=== PATIENT | female | born 1985 | race African-American/Black ===

== ENCOUNTER 2017-01-29 07:12 | Emergency (ER) | payer MEDICAID ==
[2017-01-29 10:01] LABS: ABSOLUTE BASOPHILS # (AUTO) 0.1 10^3/uL (0.0-0.2); ABSOLUTE EOSINOPHILS # (AUTO) 0.1 10^3/uL (0.0-0.6); ABSOLUTE LYMPHOCYTES (AUTO) 4.8 10^3/uL (0.5-4.7); ABSOLUTE MONOCYTES (AUTO) 0.8 10^3/uL (0.1-1.4); ABSOLUTE NEUT (AUTO) 6.7 10^3/uL (1.7-8.2); BASOPHILS % (AUTO) 0.5 % (0-2); EOSINOPHILS % (AUTO) 0.8 % (0-6); HEMATOCRIT 38.2 % (36.0-47.0); HEMOGLOBIN 12.8 g/dL (12.0-15.5); HGB HCT DIFFERENCE 0.2; LYMPHOCYTES % (AUTO) 38.5 % (13-45); MEAN CORPUSCULAR HEMOGLOBIN 31.1 pg (27.0-33.4); MEAN CORPUSCULAR HGB CONC 33.4 g/dL (32.0-36.0); MEAN CORPUSCULAR VOLUME 93 fl (80-97); MONOCYTES % (AUTO) 6.4 % (3-13); RED CELL DISTRIBUTION WIDTH 12.7 % (11.5-14.0); SEGMENTED NEUTROPHILS % (AUTO) 53.8 % (42-78); WHITE BLOOD COUNT 12.5 10^3/uL (4.0-10.5)
[2017-01-29 10:24] LABS: ALANINE AMINOTRANSFERASE 29 U/L (9-52); ALBUMIN 3.9 g/dL (3.5-5.0); ALKALINE PHOSPHATASE 86 U/L (38-126); ANION GAP 13 (5-19); ASPARTATE AMINO TRANSFERASE 12 U/L (14-36); BILIRUBIN,DIRECT 0.3 mg/dL (0.0-0.4); BILIRUBIN,TOTAL 0.5 mg/dL (0.2-1.3); BLOOD UREA NITROGEN 11 mg/dL (7-20); CALCIUM 9.2 mg/dL (8.4-10.2); CARBON DIOXIDE 24 mmol/L (22-30); CHLORIDE 106 mmol/L (98-107); CREATININE RESULT 0.75 mg/dL (0.52-1.25); GLUCOSE 115 mg/dL (75-110); LIPASE 63.6 U/L (23-300); POTASSIUM 3.9 mmol/L (3.6-5.0); SODIUM 142.5 mmol/L (137-145); TOTAL PROTEIN 6.8 g/dL (6.3-8.2)
--- NOTE | 2017-01-29 10:57 | ER Document Report ---
ED General - General Chief Complaint: Abdominal Pain Stated Complaint: ABDOMINAL PAIN Time Seen by Provider: 01/29/17 08:17 TRAVEL OUTSIDE OF THE [place] IN LAST 30 DAYS: No - HPI Patient complains to provider of: Abdominal pain Notes: Patient coming in for evaluation of abdominal pain. Patient states recently seen the local [place] [facility] with a test showing she had H. pylori in her stomach. Patient states she was placed on antibiotics for 2 weeks however continues to have pain. Patient denies any fever chills nausea vomiting diarrhea. Patient also states she is currently on oxycodone for her back pain. Patient states she has not seen a GI specialist nor has she ever had an EGD performed. Patient states she is currently on omeprazole. - Related Data Allergies/Adverse Reactions: No Known Allergies Allergy (Verified 01/29/17 07:32) Past Medical History - Social History Smoking Status: Never Smoker Frequency of alcohol use: None Drug Abuse: None Family History: Reviewed & Not Pertinent Patient has suicidal ideation: No Patient has homicidal ideation: No Neurological Medical History: Denies: Hx Seizures Renal/ Medical History: Denies: Hx Peritoneal Dialysis Musculoskeltal Medical History: Reports Hx Musculoskeletal Deformity Past Surgical History: Reports: Hx Cholecystectomy - Immunizations Immunizations up to date: Yes Hx Diphtheria, Pertussis, Tetanus Vaccination: Yes Review of Systems - Review of Systems Constitutional: No symptoms reported EENT: No symptoms reported Cardiovascular: No symptoms reported Respiratory: No symptoms reported Gastrointestinal: Abdominal pain Genitourinary: No symptoms reported Female Genitourinary: No symptoms reported Musculoskeletal: No symptoms reported Skin: No symptoms reported Hematologic/Lymphatic: No symptoms reported Neurological/Psychological: No symptoms reported -: Yes All other systems reviewed and negative Physical Exam - Vital signs Vitals: Temp Pulse Resp BP Pulse Ox 98.2 F 80 16 136/88 H 100 01/29/17 07:32 01/29/17 07:32 01/29/17 07:32 01/29/17 07:32 01/29/17 07:32 Interpretation: Normal - General General appearance: Appears well, Alert - HEENT Head: Normocephalic, Atraumatic Eyes: Normal Pupils: PERRL - Respiratory Respiratory status: No respiratory distress Chest status: Nontender Breath sounds: Normal Chest palpation: Normal - Cardiovascular Rhythm: Regular Heart sounds: Normal auscultation Murmur: No - Abdominal Inspection: Normal Distension: No distension Bowel sounds: Normal Tenderness: Nontender Organomegaly: No organomegaly - Back Back: Normal, Nontender - Extremities General upper extremity: Normal inspection, Nontender, Normal color, Normal ROM , Normal temperature General lower extremity: Normal inspection, Nontender, Normal color, Normal ROM , Normal temperature, Normal weight bearing. No: Obed's sign - Neurological Neuro grossly intact: Yes Cognition: Normal Orientation: AAOx4 Ritu Coma Scale Eye Opening: Spontaneous [place] Coma Scale Verbal: Oriented Ritu Coma Scale Motor: Obeys Commands [place] Coma Scale Total: 15 Speech: Normal Motor strength normal: LUE, RUE, LLE, RLE Sensory: Normal - Psychological Associated symptoms: Normal affect, Normal mood - Skin Skin Temperature: Warm Skin Moisture: Dry Skin Color: Normal Course - Re-evaluation Re-evalutation: 01/29/17 14:16 MRI does not show any significant pathology. I did explain to the patient that she will need to follow-up more likely with a GI specialist or PCP for further testing to make sure her H. pylori was treated. Patient was given Carafate and encouraged to continue her medications as prescribed for 01/29/17 14:17 : The patient presents with abdominal pain without signs of peritonitis or other life-threatening or serious etiology. The patient appears stable for discharge and has been instructed to return immediately if the symptoms worsen in any way, or in 8-12hr if not improved for re-evaluation. The patient has been instructed to return if the symptoms worsen or change in any way.. - Vital Signs Vital signs: Temp Pulse Resp BP Pulse Ox 97.4 F 70 16 145/81 H 99 01/29/17 11:13 01/29/17 11:13 01/29/17 11:13 01/29/17 11:13 01/29/17 11:13 - Laboratory Result Diagrams: 01/29/17 09:44 01/29/17 09:44 Laboratory results interpreted by me: 01/29/17 01/29/17 09:44 09:44 WBC 12.5 H Absolute Lymphocytes 4.8 H Glucose 115 H AST 12 L Discharge - Discharge Clinical Impression: Abdominal pain Qualifiers: Abdominal location: unspecified location Qualified Code(s): R10.9 - Unspecified abdominal pain Condition: Good Disposition: HOME, SELF-CARE Instructions: Abdominal Pain ([facility]), Gastritis ([facility]) Additional Instructions: Laboratory studies today reveal no critical etiology. I would highly recommend she follow-up with the construction trench digger provided. May try the medication also provided to aid with your pain. Prescriptions: Sucralfate [Carafate 1 gm Tablet] 1 gm PO ACHS #120 tablet Referrals: BRIAN HWANG MD [Primary Care Provider] - Follow up as needed TL WILKES MD [ACTIVE STAFF] - Follow up as needed
[2017-01-29 11:15] VITALS: BP 145/81
== END 2017-01-29 11:13 | disposition home or self-care (01) ==
LOC: ER 07:12
DX: R10.9 Unspecified abdominal pain (principal); M54.9 Dorsalgia, unspecified; Z79.899 Other long term (current) drug therapy; Z86.19 Personal history of other infectious and parasitic diseases; Z90.49 Acquired absence of other specified parts of digestive tract
CPT/HCPCS: 36415; 80053; 83690; 85025; 99284

== ENCOUNTER 2018-01-06 02:45 | Emergency (ER) | payer MEDICAID ==
[2018-01-06 03:52] LABS: APPEARANCE,URINE SLIGHTLY-CLOUDY; BILIRUBIN,URINE NEGATIVE (NEGATIVE); COLOR,URINE YELLOW; GLUCOSE, URINE >=500 mg/dL (NEGATIVE); KETONES,URINE NEGATIVE (NEGATIVE); LEUKOCYTE ESTERASE,URINE MODERATE (NEGATIVE); NITRITE,URINE NEGATIVE (NEGATIVE); PROTEIN,URINE NEGATIVE (NEGATIVE); URINE SPECIFIC GRAVITY 1.024
--- NOTE | 2018-01-06 03:53 | ER Document Report ---
ED General - General Chief Complaint: Abdominal Pain Stated Complaint: ABDOMINAL PAIN/BACK PAIN Time Seen by Provider: 01/06/18 03:39 Notes: Patient is a 32-year-old female presents with complaint of pain in the left side of her lower back. She does have a history of back surgery. This was about a month ago. She had a laminectomy performed. No weakness or numbness into the legs. No loss of bowel control. She has no some urinary frequency. Pain does radiate around the left flank and left lower pelvis. She also mentions that she slept with her ex approximately 2 weeks ago. She notes some discharge last week but has not had any since then. No abnormal vaginal bleeding. No history of kidney stones. Movement does seem to make the pain worse. No other complaints at this time. No vomiting. TRAVEL OUTSIDE OF THE [place] IN LAST 30 DAYS: No - Related Data Allergies/Adverse Reactions: No Known Allergies Allergy (Verified 01/06/18 02:54) Past Medical History - Social History Smoking Status: Unknown if Ever Smoked Frequency of alcohol use: None Drug Abuse: None Family History: Reviewed & Not Pertinent Neurological Medical History: Denies: Hx Seizures Renal/ Medical History: Denies: Hx Peritoneal Dialysis Musculoskeltal Medical History: Reports Hx Musculoskeletal Deformity Past Surgical History: Reports: Hx Cholecystectomy - Immunizations Immunizations up to date: Yes Hx Diphtheria, Pertussis, Tetanus Vaccination: Yes Review of Systems - Review of Systems Notes: My Normal Review Basic REVIEW OF SYSTEMS: CONSTITUTIONAL : Denies fever, chills, or sweats. Denies recent illness. CARDIOVASCULAR: Denies chest pain. RESPIRATORY: Denies cough, cold, or chest congestion. Denies shortness of breath, difficulty breathing, or wheezing. GASTROINTESTINAL: Left flank and abdomen abdominal pain. Denies nausea, vomiting, or diarrhea. Denies constipation. Last BM: GENITOURINARY: Denies difficulty urinating, painful urination, burning, frequency, or blood in urine. FEMALE GENITOURINARY: Some vaginal discharge which since resolved. MUSCULOSKELETAL: Low back pain SKIN: Denies rash or skin lesions. NEUROLOGICAL: Denies altered mental status or loss of consciousness. Denies headache. Denies weakness or paralysis or loss of use of either side. Denies problems with gait or speech. Denies sensory or motor loss. ALL OTHER SYSTEMS REVIEWED AND NEGATIVE. Physical Exam - Vital signs Vitals: Temp Pulse Resp BP Pulse Ox 98.9 F 83 18 121/85 99 01/06/18 02:57 01/06/18 02:57 01/06/18 02:57 01/06/18 02:57 01/06/18 02:57 - Notes Notes: General Appearance: Well nourished, alert, cooperative, no acute distress, mild obvious discomfort. Vitals: reviewed, See vital signs table. Head: no swelling or tenderness to the head Eyes: PERRL, EOMI, Conjuctiva clear Mouth: No decreasd moisture Throat: No tonsillar inflammation, No airway obstruction, No lymphadenopathy Neck: Supple, no neck tenderness, No thyromegaly Lungs: No wheezing, No rales, No rhonci, No accessory muscle use, good air exchange bilaterally. Heart: Normal rate, Regular rythm, No murmur, no rub Abdomen: Normal BS, soft, No rigidity, very minimal left lower quadrant left flank abdominal tenderness to palpation, No guarding, no rebound, no abdominal masses, no organomegaly Back: Pain to palpation over left lumbar paraspinal musculature. Some midline lumbar tenderness. No right-sided tenderness. Extremities: strength 5/5 in all extremities, good pulses in all extremities, no swelling or tenderness in the extremities, no edema. Skin: warm, dry, appropriate color, no rash Neuro: speech clear, oriented x 3, normal affect, responds appropriately to questions. Good strength with plantar and dorsiflexion against resistance. Normal distal sensation. Course - Vital Signs Vital signs: Temp Pulse Resp BP Pulse Ox 98.9 F 83 18 121/85 99 01/06/18 02:57 01/06/18 02:57 01/06/18 02:57 01/06/18 02:57 01/06/18 02:57 Discharge - Discharge Referrals: BRIAN HWANG MD [Primary Care Provider] - Follow up as needed
[2018-01-06 04:29] LABS: BACTERIA (WET MOUNT) 4+ BACTERIA SEEN; EPITHELIALS (WET MOUNT) 4+ EPITHELIALS SEEN; RBCS (WET MOUNT) NO RBCS SEEN; T.VAGINALIS (WET MOUNT) NO TRICHOMONAS SEEN; WBCS (WET MOUNT) FEW WBCS SEEN; YEAST (WET MOUNT) NO YEAST SEEN
[2018-01-06] MEDS ORDERED: METRONIDAZOLE 500 MG TABLET PO ONE (05:15)
--- NOTE | 2018-01-06 05:21 | ER Document Report ---
ED General - General Chief Complaint: Abdominal Pain Stated Complaint: ABDOMINAL PAIN/BACK PAIN Time Seen by Provider: 01/06/18 03:39 Notes: Patient is a 32-year-old female who presents with complaint of back pain is been in the left side and radiates around the left flank. Most pain is in the back. Worse with movement. She denies any dysuria but has had a little bit of urinary frequency. No vomiting. No diarrhea. No loss of bowel control. No leg weakness or numbness. She does have history of back surgery which she had 1 month ago. She had a laminectomy performed. She denies history of diabetes. Denies history of high blood pressure. She does admit that she slept with her ex approximately a week ago. She had little bit of whitish vaginal discharge. No abnormal vaginal bleeding. No other complaints at this time. - Related Data Allergies/Adverse Reactions: No Known Allergies Allergy (Verified 01/06/18 02:54) Past Medical History - Social History Smoking Status: Unknown if Ever Smoked Frequency of alcohol use: None Drug Abuse: None Family History: Reviewed & Not Pertinent Patient has suicidal ideation: No Patient has homicidal ideation: No Neurological Medical History: Denies: Hx Seizures Renal/ Medical History: Denies: Hx Peritoneal Dialysis Musculoskeltal Medical History: Reports Hx Musculoskeletal Deformity Past Surgical History: Reports: Hx Cholecystectomy - Immunizations Immunizations up to date: Yes Hx Diphtheria, Pertussis, Tetanus Vaccination: Yes Review of Systems - Review of Systems Notes: My Normal Review Basic REVIEW OF SYSTEMS: CONSTITUTIONAL : Denies fever, chills, or sweats. Denies recent illness. EENT: Denies eye, ear, throat, or mouth pain or symptoms. Denies nasal or sinus congestion. CARDIOVASCULAR: Denies chest pain. RESPIRATORY: Denies cough, cold, or chest congestion. Denies shortness of breath, difficulty breathing, or wheezing. GASTROINTESTINAL: Left flank pain, denies nausea, vomiting, or diarrhea. Denies constipation. Last BM: GENITOURINARY: Denies difficulty urinating, painful urination, burning, frequency, or blood in urine. FEMALE GENITOURINARY: Mild vaginal discharge MUSCULOSKELETAL: Back Pain SKIN: Denies rash or skin lesions. NEUROLOGICAL: Denies altered mental status or loss of consciousness. Denies headache. Denies weakness or paralysis or loss of use of either side. Denies problems with gait or speech. Denies sensory or motor loss. ALL OTHER SYSTEMS REVIEWED AND NEGATIVE. Physical Exam - Vital signs Vitals: Temp Pulse Resp BP Pulse Ox 98.9 F 83 18 121/85 99 01/06/18 02:57 01/06/18 02:57 01/06/18 02:57 01/06/18 02:57 01/06/18 02:57 - Notes Notes: General Appearance: Well nourished, alert, cooperative, no acute distress, mild obvious discomfort. Vitals: reviewed, See vital signs table. Head: no swelling or tenderness to the head Eyes: PERRL, EOMI, Conjuctiva clear Mouth: No decreasd moisture Lungs: No wheezing, No rales, No rhonci, No accessory muscle use, good air exchange bilaterally. Heart: Normal rate, Regular rythm, No murmur, no rub Abdomen: Normal BS, soft, No rigidity, very mild left-sided flank abdominal tenderness. Remainder of abdomen is nontender., No guarding, no rebound, no abdominal masses, no organomegaly Exam: Pelvic exam performed with Ivelisse Monk RN as restrictive preparation operator. No abnormal vaginal bleeding on exam. Patient has just very small amount of whitish discharge. Back: Patient has significant tenderness palpation over the left lumbar paraspinal musculature. Very mild midline tenderness to palpation. No right- sided tenderness. Extremities: strength 5/5 in all extremities, good pulses in all extremities, no swelling or tenderness in the extremities, no edema. Skin: warm, dry, appropriate color, no rash Neuro: speech clear, oriented x 3, normal affect, responds appropriately to questions. Good strength against resistance with plantar dorsiflexion. Normal gait. Distal sensation intact. Course - Re-evaluation Re-evalutation: 01/06/18 05:42 I suspect most patient's pain is muscular skeletal in relation to her back. Is easily reproducible palpation. Urine does show some sugar in the urine. Therefore obtain Accu-Chek was 190. I talked to patient length about prediabetes. She does a primary care doctor who she has not seen in a few months. I encouraged her to follow-up with primary care doctor this week for further testing or diabetes. I talked about diet changes that most times early diabetes can be managed with diet changes and weight loss. She does have 4+ bacteria on her wet prep. I will treated for bacterial vaginosis. GC and chlamydia are pending. I did give her the number to call for culture call back. I told her if it is positive we should call her however she does not hear anything and she should feel free to call the culture callback number. Patient encouraged to return to her meal if she has severe back pain, leg numbness or leg weakness, vomiting, severe abdominal pain, loss of bowel control , urinary tension, or she feels unwell. Patient agrees with plan will be discharged home. Dictation of this chart was performed using voice recognition software; therefore, there may be some unintended grammatical errors. - Vital Signs Vital signs: Temp Pulse Resp BP Pulse Ox 98.9 F 83 18 121/85 99 01/06/18 02:57 01/06/18 02:57 01/06/18 02:57 01/06/18 02:57 01/06/18 02:57 - Laboratory Laboratory results interpreted by me: 01/06/18 01/06/18 03:33 04:43 POC Glucose 190 H Urine Glucose (UA) >=500 H Urine Urobilinogen 4.0 H Ur Leukocyte Esterase MODERATE H Discharge - Discharge Clinical Impression: Bacterial vaginitis, Elevated blood sugar Back pain Qualifiers: Back pain location: low back pain Chronicity: chronic Back pain laterality: left Sciatica presence: without sciatica Qualified Code(s): M54.5 - Low back pain Disposition: HOME, SELF-CARE Additional Instructions: Please take the antibiotics as prescribed. You blood sugar is elevated today. This could be the early stags of diabetes. Please do not eat foods that are high in sugar. Please do not drink soda or drink fruit juice. Please follow up with your doctor this week for reevaluation and for recheck of your blood sugar. Please return to the ER immediately if you have fevers, increasing thirst , increasing urination, worsening back pain, leg weakness, loss of bowel control , vomiting, or feel unwell. We did send of swabs to check for gonorrhea and chlamydia. We should call you if these are positive. Feel free to call on Sunday if you have not received your results. Prescriptions: Metronidazole [Flagyl 500 mg Tablet] 500 mg PO BID #14 tablet Referrals: BRIAN HWANG MD [Primary Care Provider] - 01/07/18
[2018-01-06 05:48] LABS: CHLAM PCR NOT DETECTED (NOT DETECT); GON PCR NOT DETECTED (NOT DETECT)
[2018-01-06 06:22] VITALS: BP 127/89
== END 2018-01-06 06:10 | disposition home or self-care (01) ==
LOC: ER 02:45
DX: N76.0 Acute vaginitis (principal); B96.89 Other specified bacterial agents as the cause of diseases classified elsewhere; M54.5 Low back pain; R73.9 Hyperglycemia, unspecified; R10.9 Unspecified abdominal pain; Z98.890 Other specified postprocedural states; Z90.49 Acquired absence of other specified parts of digestive tract
CPT/HCPCS: 99284; 87210; 82962; 81025; 81001; 87491; 87591; J3490

== ENCOUNTER 2019-02-13 08:10 | Emergency (ER) | payer SELFPAY ==
[2019-02-13 08:17] VITALS: BP 139/95
[2019-02-13] MEDS ORDERED: IBUPROFEN 800 MG TABLET PO ONE (10:01)
[2019-02-13] MEDS ORDERED: LIDOCAINE 5% (700 MG) TRANSDERMAL ADH..PATCH TP ONE (10:01)
--- NOTE | 2019-02-13 10:07 | ER Document Report ---
HPI - HPI Patient complains to provider of: Left shoulder and back pain Time Seen by Provider: 02/13/19 09:44 Onset: Yesterday Onset/Duration: Gradual Quality of pain: Achy Pain Level: 4 Context: Patient complains of left shoulder and upper back pain that started yesterday. Patient states she had a similar episode 2 weeks ago they had gotten better and then returned yesterday. Patient states pain is worse with movement. Patient is right-hand dominant. Patient denies any injury. 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 Associated Symptoms: Other - Left shoulder upper back pain. denies: Fever, Headache Exacerbated by: Movement Relieved by: Remaining still Similar symptoms previously: Yes Recently seen / treated by doctor: No - ROS ROS below otherwise negative: Yes Systems Reviewed and Negative: Yes All other systems reviewed and negative - CONSTITUTIONAL Constitutional: DENIES: Fever, Chills - NEURO Neurology: DENIES: Headache, Weakness - RESPIRATORY Respiratory: DENIES: Trouble Breathing, Coughing - GASTROINTESTINAL Gastrointestinal: DENIES: Nausea - REPRODUCTIVE Reproductive: DENIES: : - MUSCULOSKELETAL Musculoskeletal: REPORTS: Extremity pain - left shouder, Back Pain - DERM Skin Color: Normal Skin Problems: None Past Medical History - General Information source: Patient - Social History Smoking Status: Never Smoker Chew tobacco use (# tins/day): No Frequency of alcohol use: None Drug Abuse: None 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 Family History: Reviewed & Not Pertinent Patient has suicidal ideation: No Patient has homicidal ideation: No Neurological Medical History: Denies: Hx Seizures Endocrine Medical History: Reports: Hx Diabetes Mellitus Type 2 Renal/ Medical History: Denies: Hx Peritoneal Dialysis Musculoskeletal Medical History: Reports Hx Musculoskeletal Deformity Past Surgical History: Reports: Hx Section, Hx Cholecystectomy - Immunizations Immunizations up to date: Yes Hx Diphtheria, Pertussis, Tetanus Vaccination: Yes Vertical Provider Document - CONSTITUTIONAL Agree With Documented VS: Yes Exam Limitations: No Limitations General Appearance: WD/WN, No Apparent Distress - INFECTION CONTROL TRAVEL OUTSIDE OF THE [place] IN LAST 30 DAYS: No - HEENT HEENT: Atraumatic, Normocephalic - NECK Neck: Normal Inspection, Supple Notes: No meningismus, no midline cervical tenderness step-off or deformity - RESPIRATORY Respiratory: Breath Sounds Normal, No Respiratory Distress - CARDIOVASCULAR Cardiovascular: Regular Rate, Regular Rhythm Pulses: Normal: Radial - BACK Back: Abnormal Inspection - Left trapezius muscle tenderness with spasm - MUSCULOSKELETAL/EXTREMETIES Musculoskeletal/Extremeties: MAEW, FROM, Tender - Tenderness to left shoulder joint with range of motion, tenderness to left bicep muscle, 1+ edema to left bicep, normal skin color and temperature, soft muscle compartment - NEURO Level of Consciousness: Awake, Alert, Appropriate Motor/Sensory: No Motor Deficit - DERM Integumentary: Warm, Dry, No Rash Course - Re-evaluation Re-evalutation: 02/13/19 10:02 Patient with musculoskeletal arm and upper back pain that is reproducible with range of motion and palpation. Patient denies any injury. Will treat symptomatically and encourage outpatient follow-up with her primary doctor. Patient without any midline spinal tenderness step-off or deformity. Normal muscle strength and tone to bilateral upper extremities. - Vital Signs Vital signs: Temp Pulse Resp BP Pulse Ox 98.8 F 80 16 139/95 H 99 02/13/19 08:16 02/13/19 08:16 02/13/19 08:16 02/13/19 08:16 02/13/19 08:16 Discharge - Discharge Clinical Impression: Strain of left trapezius muscle Qualifiers: Encounter type: initial encounter Qualified Code(s): S46.812A - Strain of other muscles, fascia and tendons at shoulder and upper arm level, left arm, initial encounter Sprain of left shoulder Qualifiers: Encounter type: initial encounter Shoulder sprain type: unspecified sprain Qualified Code(s): S43.402A - Unspecified sprain of left shoulder joint, initial encounter Strain of left biceps muscle Qualifiers: Encounter type: initial encounter Qualified Code(s): S46.212A - Strain of muscle, fascia and tendon of other parts of biceps, left arm, initial encounter Condition: Stable Disposition: HOME, SELF-CARE Instructions: Muscle Relaxers ([facility]), Muscle Strain ([facility]), Sprain ([facility]), Temporary Sling ([facility]) Additional Instructions: Return immediately for any new or worsening symptoms Followup with your primary care provider, call tomorrow to make a followup appointment Wear sling while awake only, only for the next 4 days and then remove. Perform gentle range of motion exercises each day Follow-up with orthopedics for further evaluation, call tomorrow for an appointment Prescriptions: Lidocaine [Lidoderm 5% (700 mg) Transdermal Patch] 1 patch TP DAILY PRN #10 adh..patch PRN Reason: Metaxalone [Skelaxin 800 mg Tablet] 800 mg PO ASDIR PRN #15 tablet PRN Reason: Naproxen [Naprosyn 250 Nmg Tablet] 1 tab PO BID #14 tablet Forms: Return to Work Referrals: BRIAN HWANG MD [Primary Care Provider] - Follow up as needed [facility] [Provider Group] - Follow up as needed
== END 2019-02-13 10:16 | disposition home or self-care (01) ==
LOC: ER 08:10
DX: S43.402A Unspecified sprain of left shoulder joint, initial encounter (principal); S29.012A Strain of muscle and tendon of back wall of thorax, initial encounter; S46.212A Strain of muscle, fascia and tendon of other parts of biceps, left arm, initial encounter; X58.XXXA Exposure to other specified factors, initial encounter; M25.512 Pain in left shoulder; M54.89 Other dorsalgia; E11.9 Type 2 diabetes mellitus without complications
CPT/HCPCS: 99283; L3650

== ENCOUNTER 2019-10-16 22:28 | Emergency (ER) | payer SELFPAY ==
[2019-10-16] MEDS ORDERED: IBUPROFEN 600 MG TABLET PO ONE (23:00)
[2019-10-16] MEDS ORDERED: ACETAMINOPHEN 325 MG TABLET PO ONE (23:00)
[2019-10-16] MEDS ORDERED: CETIRIZINE 10 MG TABLET PO ONE (23:01)
--- NOTE | 2019-10-16 23:02 | ER Document Report ---
HPI - HPI Time Seen by Provider: 10/16/19 22:48 Pain Level: 4 Context: Is a 34-year-old female who presents to the emergency department with a chief complaint of cold chills, rhinorrhea, sore throat, and congestion. Patient states that her symptoms started 3 days ago. She has been taking ibuprofen, but has not had any relief of her symptoms. 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 - CONSTITUTIONAL Constitutional: DENIES: Chills - EENT EENT: REPORTS: Sore Throat, Nasal Drainage-Clear, Nasal Drainage-Purulent, Congestion. DENIES: Ear Pain, Eye problems - CARDIOVASCULAR Cardiovascular: DENIES: Chest pain - RESPIRATORY Respiratory: REPORTS: Coughing. DENIES: Trouble Breathing - GASTROINTESTINAL Gastrointestinal: DENIES: Abdominal Pain, Nausea, Patient vomiting - REPRODUCTIVE Reproductive: DENIES: : - MUSCULOSKELETAL Musculoskeletal: REPORTS: Neck Pain - bilateral. DENIES: Extremity pain - DERM Skin Color: Normal Skin Problems: None Past Medical History - Social History Smoking Status: Never Smoker Chew tobacco use (# tins/day): No Frequency of alcohol use: None Drug Abuse: None Family History: Reviewed & Not Pertinent Patient has suicidal ideation: No Patient has homicidal ideation: No Neurological Medical History: Denies: Hx Seizures Endocrine Medical History: Reports: Hx Diabetes Mellitus Type 2 Renal/ Medical History: Denies: Hx Peritoneal Dialysis Musculoskeletal Medical History: Reports Hx Musculoskeletal Deformity Past Surgical History: Reports: Hx Section, Hx Cholecystectomy - Immunizations Immunizations up to date: Yes Hx Diphtheria, Pertussis, Tetanus Vaccination: Yes Vertical Provider Document - CONSTITUTIONAL Agree With Documented VS: Yes Exam Limitations: No Limitations General Appearance: No Apparent Distress - INFECTION CONTROL TRAVEL OUTSIDE OF THE [place] IN LAST 30 DAYS: No - HEENT HEENT: Atraumatic, Normocephalic, PERRLA, Pharyngeal Exudate - right, Pharyngeal Tenderness, Pharyngeal Erythema. negative: Conjuctival Injection, Tympanic Membrane Red, Tympanic Membrane Bulging - NECK Neck: Lymphadenopathy-Left, Lymphadenopathy-Right - RESPIRATORY Respiratory: Breath Sounds Normal, No Respiratory Distress, Chest Non-Tender - CARDIOVASCULAR Cardiovascular: Regular Rate, Regular Rhythm Pulses: Normal: Radial - GI/ABDOMEN Gastrointestinal: Abdomen Soft - MUSCULOSKELETAL/EXTREMETIES Musculoskeletal/Extremeties: FROM - NEURO Level of Consciousness: Awake, Alert, Appropriate Motor/Sensory: No Motor Deficit, No Sensory Deficit - DERM Integumentary: Warm, Dry, No Rash Course - Re-evaluation Re-evalutation: 10/17/19 00:45 Rapid strep and influenza tests are negative. She does have anterior cervical lymphadenopathy. She also has exudative pharyngitis. I will treat her with a dose of Decadron and penicillin here in the emergency department. 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 I have a very low suspicion for meningitis. Follow-up precautions were given. Verbal discharge instructions were given to the patient. They verbalized understanding. They are stable for discharge. - Vital Signs Vital signs: Temp Pulse Resp BP Pulse Ox 98.6 F 110 H 18 146/90 H 98 10/16/19 22:35 10/16/19 22:35 10/16/19 22:35 10/16/19 22:35 10/16/19 22:35 Discharge - Discharge Clinical Impression: Sore throat, Exudative pharyngitis, Neck pain Condition: Stable Disposition: HOME, SELF-CARE Additional Instructions: You were seen today in the emergency department for a sore throat. You have been treated with a dose of penicillin here in the emergency department and do not need any additional antibiotics. You have also been given a dose of steroids to help with your throat discomfort. Please continue to take ibuprofen 600 mg every 6 hours or Tylenol 1000 mg every 6 hours as needed for throat discomfort. You can also gargle with salt water. Continue to drink plenty of fluids. Follow-up with your primary care doctor in the next several days. Return if you become unable to swallow, have difficulty breathing, pass out, have persistent vomiting that prevents you from being able to tolerate fluids, or have any other symptoms that are concerning to you. You are also being sent home with Flexeril, a muscle relaxer to help with your neck pain. Prescriptions: Cyclobenzaprine HCl [Flexeril 10 mg Tablet] 10 mg PO TIDP PRN #15 tab PRN Reason: Forms: Return to Work Referrals: BRIAN HWANG MD [NO LOCAL MD] - Follow up as needed
[2019-10-17 00:40] LABS: A TYPE INFLUENZA AG NEGATIVE (NEGATIVE); B INFLUENZA AG NEGATIVE (NEGATIVE)
[2019-10-17] MEDS ORDERED: PENICILLIN G BENZATHINE 1.2 MILLION UNIT/2 ML DISP.SYRIN IM ONE (00:52)
[2019-10-17] MEDS ORDERED: DEXAMETHASONE SOD PHOS INJ 10 MG/1 ML VIAL IM ONE (00:52)
[2019-10-17] MEDS ORDERED: CYCLOBENZAPRINE HCL 10 MG TABLET PO ONE (00:52)
[2019-10-17 01:10] VITALS: BP 153/88
== END 2019-10-17 01:20 | disposition home or self-care (01) ==
LOC: ER 22:28
DX: J02.9 Acute pharyngitis, unspecified (principal); M54.2 Cervicalgia; J34.89 Other specified disorders of nose and nasal sinuses; R09.81 Nasal congestion; E11.9 Type 2 diabetes mellitus without complications
CPT/HCPCS: 99283; 96372; 87070; 87880; 87804; J0561; J1100

== ENCOUNTER 2020-04-02 08:35 | Emergency (ER) | payer SELFPAY ==
[2020-04-02 10:17] LABS: ABSOLUTE BASOPHILS # (AUTO) 0.1 10^3/uL (0.0-0.2); ABSOLUTE EOSINOPHILS # (AUTO) 0.3 10^3/uL (0.0-0.6); ABSOLUTE LYMPHOCYTES (AUTO) 4.2 10^3/uL (0.5-4.7); ABSOLUTE MONOCYTES (AUTO) 0.6 10^3/uL (0.1-1.4); ABSOLUTE NEUT (AUTO) 3.5 10^3/uL (1.7-8.2); BASOPHILS % (AUTO) 0.9 % (0-2); EOSINOPHILS % (AUTO) 3.8 % (0-6); HEMATOCRIT 41.5 % (36.0-47.0); HEMOGLOBIN 14.1 g/dL (12.0-15.5); LYMPHOCYTES % (AUTO) 48.4 % (13-45); MEAN CORPUSCULAR HEMOGLOBIN 31.4 pg (27.0-33.4); MEAN CORPUSCULAR HGB CONC 33.9 g/dL (32.0-36.0); MEAN CORPUSCULAR VOLUME 93 fl (80-97); MONOCYTES % (AUTO) 6.8 % (3-13); PLATELET COUNT 311 10^3/uL (150-450); RED BLOOD COUNT 4.48 10^6/uL (3.72-5.28); RED CELL DISTRIBUTION WIDTH 12.8 % (11.5-14.0); SEGMENTED NEUTROPHILS % (AUTO) 40.1 % (42-78); TOTAL CELLS COUNTED % (AUTO) 100 %; WHITE BLOOD COUNT 8.7 10^3/uL (4.0-10.5)
[2020-04-02 10:23] LABS: APPEARANCE,URINE CLEAR; BILIRUBIN,URINE NEGATIVE (NEGATIVE); COLOR,URINE YELLOW; GLUCOSE, URINE >=500 mg/dL (NEGATIVE); KETONES,URINE NEGATIVE (NEGATIVE); LEUKOCYTE ESTERASE,URINE NEGATIVE (NEGATIVE); NITRITE,URINE NEGATIVE (NEGATIVE); PROTEIN,URINE NEGATIVE (NEGATIVE); UROBILINOGEN,URINE NEGATIVE mg/dL (<2.0)
[2020-04-02 10:45] LABS: ALBUMIN 4.4 g/dL (3.5-5.0); ALKALINE PHOSPHATASE 87 U/L (38-126); ANION GAP 9 (5-19); ASPARTATE AMINO TRANSFERASE 25 U/L (14-36); BILIRUBIN,TOTAL 0.7 mg/dL (0.2-1.3); BLOOD UREA NITROGEN 11 mg/dL (7-20); CALCIUM 9.5 mg/dL (8.4-10.2); CARBON DIOXIDE 21 mmol/L (22-30); CHLORIDE 110 mmol/L (98-107); GLUCOSE 132 mg/dL (75-110); POTASSIUM 4.6 mmol/L (3.6-5.0); TOTAL PROTEIN 7.7 g/dL (6.3-8.2)
[2020-04-02] MEDS ORDERED: KETOROLAC TROMETHAMINE INJ/PF 30 MG/1 ML SDV IV ONE (11:00)
--- NOTE | 2020-04-02 11:19 | ER Document Report ---
ED General - General Chief Complaint: Abdominal Pain Stated Complaint: NECK,ARM PAIN,ABDOMINAL PAIN Time Seen by Provider: 04/02/20 10:13 Primary Care Provider: VENUS MENDOZA MD [Primary Care Provider] - Follow up as needed TRAVEL OUTSIDE OF THE [place] IN LAST 30 DAYS: No - HPI Notes: Chief complaint: Multiple complaints History of present illness: 35-year-old female followed by [facility] presenting today with multiple concerns and complaints. Patient has a lifelong history of what sounds like functional bowel syndrome and she is having increasing constipation. She is recently been started on medications for type 2 diabetes and hypertension and says that she just feels weak and dizzy a lot of the time. She also complains that she has arthritic symptoms primarily involving her hips and elbows and feels that these have not been adequately evaluated by her primary care physician. She is not currently taking any type of NSAID. She has been on a variety of [id number] laxatives. She had a colonoscopy 3 years ago remarkable for a benign polyp and she also has a history of diverticulosis. She says she often goes a week at a time without having a bowel movement. She is presently taking lisinopril 2.5 mg daily for her BP and Jardiance 10 mg daily for diabetes. She is not testing blood sugars at home. 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 Patient has had previous lumbar disc surgery several years ago. - Related Data Allergies/Adverse Reactions: No Known Allergies Allergy (Verified 04/02/20 08:44) Past Medical History - General Information source: Patient, [facility] Records - Social History Smoking Status: Never Smoker Chew tobacco use (# tins/day): No Frequency of alcohol use: None Drug Abuse: None Family History: Reviewed & Not Pertinent Patient has homicidal ideation: No - Past Medical History Cardiac Medical History: Reports: Hx Hypertension Neurological Medical History: Denies: Hx Seizures Endocrine Medical History: Reports: Hx Diabetes Mellitus Type 2 Renal/ Medical History: Denies: Hx Peritoneal Dialysis GI Medical History: Reports: Hx Colonoscopy, Other - History of diverticulosis Musculoskeletal Medical History: Reports Hx Arthritis, Reports Hx Musculoskeletal Deformity Past Surgical History: Reports: Hx Section, Hx Cholecystectomy - Immunizations Immunizations up to date: Yes Hx Diphtheria, Pertussis, Tetanus Vaccination: Yes Review of Systems - Review of Systems Notes: Constitutional: Negative for fever. HENT: Negative for sore throat. Eyes: Negative for visual changes. Cardiovascular: Negative for chest pain. Respiratory: Negative for shortness of breath. Gastrointestinal: As per HPI. Negative for abdominal pain, vomiting or diarrhea. Genitourinary: Negative for dysuria. Musculoskeletal: As per HPI. Skin: Negative for rash. Neurological: Intermittent dull generalized headache. Negative for focal weakness or numbness. 10 point ROS negative except as marked above and in HPI. Physical Exam - Vital signs Vitals: Temp Pulse Resp BP Pulse Ox 99.1 F 85 16 143/91 H 98 04/02/20 08:38 04/02/20 08:38 04/02/20 08:38 04/02/20 08:38 04/02/20 08:38 Course - Re-evaluation Re-evalutation: 04/02/20 14:14 Urinalysis is remarkable for glycosuria and otherwise normal. Her blood sugar here was 135 and remainder of her chemistry profile is unremarkable. CBC is normal. We obtained plain films of the pelvis and both elbows and these were read as normal by the radiologist. She was experiencing headache and arthritic pain while here and was given a dose of IM Toradol with good relief of symptoms. I think this lady is suffering from functional bowel syndrome noting that she is already had a rather extensive GI work-up and has a lifelong history of alternating constipation and diarrhea. She has had a colonoscopy within the last 3 years. She is tried a right variety of wbye-ksl-kpcsets laxatives with little improvement. I suggested we give her a trial of Linzess. I will also put her on an NSAID for treatment of her arthritic symptoms and suggested that she follow up on this as well as all of her other various chronic medical problems with her primary care provider at her earliest convenience. Findings, clinical impression and plan of treatment have been discussed with patient/family. Understanding of current findings and recommendations has been acknowledged by them and there is agreement regarding disposition and follow-up. - Vital Signs Vital signs: Temp Pulse Resp BP Pulse Ox 99.1 F 85 16 143/91 H 98 04/02/20 08:38 04/02/20 08:38 04/02/20 08:38 04/02/20 08:38 04/02/20 08:38 - Laboratory Result Diagrams: 04/02/20 09:50 04/02/20 09:50 Laboratory results interpreted by me: 08/07/20 08/07/20 08/07/20 09:50 09:50 09:50 Lymph % (Auto) 48.4 H Seg Neutrophils % 40.1 L Chloride 110 H Carbon Dioxide 21 L Glucose 132 H Urine Glucose (UA) >=500 H Discharge - Discharge Clinical Impression: FUNCTIONAL BOWEL SYNDROME Arthralgia Qualifiers: Joint pain location: unspecified Qualified Code(s): M25.50 - Pain in unspecified joint Condition: Stable Disposition: HOME, SELF-CARE Additional Instructions: Irritable Bowel Syndrome The cause of irritable bowel syndrome is unknown. Although often called "colitis", it is not an infection or inflammatory condition. Symptoms vary, but can include periodic abdominal cramping, migratory abdominal pains, and constipation. Commonly, a few days of constipation is followed by loose stools, then constipation begins again. There is no specific test for irritable bowel syndrome. The disease is diagnosed by history and exam findings, and by finding no evidence of other disease. Irritable bowel syndrome is treated by making the stool softer and bulkier. Regular meals, including plenty of soluble fiber, help. Avoid foods which provoke cramping. Stool "bulking agents," such as Metamucil, help. Expect occasional flare-ups. Because of the severity of your symptoms your doctor is also prescribing a medication called Linzess. Call the physician if symptoms worsen, such as severe or constant abdominal pain, fever, blood in the stool, increasing constipation, or more frequent or severe diarrhea. You need to return to your primary care physician to discuss your problems with chronic constipation and your arthritic symptoms. You may need further referral back to a gastroenterology specialist or to a tire retreader. Prescriptions: Linaclotide [Linzess 145 Mcg Capsule] 145 mcg PO QAM 10 Days #10 capsule Naproxen 500 mg PO BID PRN 7 Days #14 tablet PRN Reason: Forms: Return to Work Referrals: VENUS MENDOZA MD [Primary Care Provider] - Follow up as needed
--- NOTE | 2020-04-02 11:43 | RADIOLOGY REPORT (SQ) ---
EXAM DESCRIPTION: PELVIS AP IMAGES COMPLETED DATE/TIME: 04/02/2020 11:27 am REASON FOR STUDY: hip pain COMPARISON: None. NUMBER OF VIEWS: One view TECHNIQUE: AP Pelvis LIMITATIONS: None. FINDINGS: MINERALIZATION: Normal. HIPS: No acute fracture or dislocation. No worrisome bone lesions. PELVIS AND SACRUM: No acute fracture or dislocation. No worrisome bone lesions. PUBIS AND ISCHIUM: No acute fracture. LOWER LUMBAR SPINE: No significant findings as visualized. SOFT TISSUES: No findings. OTHER: No other significant finding. IMPRESSION: NEGATIVE STUDY OF THE PELVIS. COMMENT: Pelvic fractures are often occult on plain radiographs. If strong clinical suspicion for f racture, recommend CT or MR. TECHNICAL DOCUMENTATION: JOB ID: [id number] 2010 [employer]- All Rights Reserved Reading location - IP/workstation name: [email or web address]
--- NOTE | 2020-04-02 11:47 | RADIOLOGY REPORT (SQ) ---
EXAM DESCRIPTION: ELBOW BILATERAL 2 VIEWS MIN IMAGES COMPLETED DATE/TIME: 04/02/2020 11:27 am REASON FOR STUDY: pain COMPARISON: None. NUMBER OF VIEWS: Two views. TECHNIQUE: AP and lateral radiographic images acquired of the right and left elbow. LIMITATIONS: None. FINDINGS: MINERALIZATION: Normal. BONES: No acute fracture or dislocation. No worrisome bone lesions. JOINT: No effusion. SOFT TISSUES: No soft tissue swelling. No foreign body. OTHER: No other significant finding. IMPRESSION: NEGATIVE STUDY OF THE RIGHT AND LEFT ELBOW. NO RADIOGRAPHIC EVIDENCE OF ACUTE INJURY. TECHNICAL DOCUMENTATION: JOB ID: [id number] 2010 [employer]- All Rights Reserved Reading location - IP/workstation name: [email or web address]
[2020-04-02 14:53] VITALS: BP 134/74
== END 2020-04-02 14:52 | disposition home or self-care (01) ==
LOC: ER 08:35
DX: K59.9 Functional intestinal disorder, unspecified (principal); K59.00 Constipation, unspecified; E11.9 Type 2 diabetes mellitus without complications; I10 Essential (primary) hypertension; R53.1 Weakness; R42 Dizziness and giddiness; R51 Headache; M25.559 Pain in unspecified hip; Z87.19 Personal history of other diseases of the digestive system
CPT/HCPCS: 99283; 96374; 36415; 83690; 85025; 81025; 80053; 81001; 72170; 73070; J1885